=== PATIENT | female | born 1985 | race American Indian/Alaskan Native ===

== ENCOUNTER 2016-12-05 11:52 | Emergency (ER) | payer MEDICAID ==
[2016-12-05] MEDS: Albuterol-Ipratrop 3 mg / 0.5 (3 ml) UD IH SCH ×3 (12:15→12:40)
[2016-12-05 12:17] VITALS: BMI 36.6
[2016-12-05 12:22] VITALS: TEMP 97.9
[2016-12-05] MEDS ORDERED: Albuterol-Ipratrop 3 mg / 0.5 (3 ml) UD ONE (12:25)
--- NOTE | 2016-12-05 13:07 | RAD ---
HISTORY: cough, fever, asthma COMPARISON: Chest x-ray performed 10/11/15 TECHNIQUE: Chest PA and lateral FINDINGS: Examination limited by habitus. LUNGS: No focal consolidation. Please note that chest x-ray has limited sensitivity for the detection of pulmonary masses. PLEURA: No significant pleural effusion identified. No definite pneumothorax . CARDIOVASCULAR: Heart size appears within normal limits. OSSEOUS STRUCTURES: No acute osseous abnormality is detected. VISUALIZED UPPER ABDOMEN: Unremarkable. OTHER FINDINGS: None. IMPRESSION: No focal consolidation, significant pleural effusion, or definite pneumothorax identified.
--- NOTE | 2016-12-05 13:34 | C.PDOC ---
History Of Present Illness 30 yr old female with PMHx of asthma, presents to the ER with complaints of cough for the past 2-3 days, associated with chest congestion. Patient also states yesterday the symptoms became associated with SOB and wheezing. Patient states she has been using her inhaler but with minimal relief. Patient denies fever, chills, chest pain, nausea, vomiting, weakness or numbness. Time Seen by Provider: 12/05/16 12:10 Chief Complaint (Nursing): Shortness Of Breath History Per: Patient History/Exam Limitations: no limitations Onset/Duration Of Symptoms: Days (2-3) Current Symptoms Are (Timing): Still Present Exacerbating Factor(s): Coughing Associated Symptoms: denies: Fever, Sweating, Bloody Cough, Productive Cough, Leg/Calf Pain Past Medical History Reviewed: Historical Data, Nursing Documentation, Vital Signs Vital Signs: Last Vital Signs Temp 97.9 F 12/05/16 12:00 Pulse 93 H 12/05/16 13:47 Resp 20 12/05/16 13:47 BP 152/100 H 12/05/16 13:47 Pulse Ox 99 12/05/16 13:47 - Medical History PMH: Asthma Family History: States: No Known Family Hx - Social History Hx Alcohol Use: No Hx Substance Use: No - Immunization History Hx Tetanus Toxoid Vaccination: No Hx Influenza Vaccination: No Hx Pneumococcal Vaccination: No Review Of Systems Except As Marked, All Systems Reviewed And Found Negative. Constitutional: Negative for: Fever, Chills Cardiovascular: Positive for: Other ((+) Chest congestion). Negative for: Chest Pain Respiratory: Positive for: Cough, Shortness of Breath, Wheezing Gastrointestinal: Negative for: Nausea, Vomiting Neurological: Negative for: Weakness, Numbness Physical Exam - Physical Exam Appears: Non-toxic, No Acute Distress Skin: Warm, Dry, No Rash Head: Atraumatic, Normacephalic Eye(s): bilateral: Normal Inspection, PERRL, EOMI Oral Mucosa: Moist Neck: Normal ROM, Supple Chest: Symmetrical, No Tenderness Cardiovascular: Rhythm Regular, No Friction Rub, No Murmur Respiratory: No Rales, Wheezing (moderate wheeing bilateral) Gastrointestinal/Abdominal: Normal Exam, Soft, No Tenderness, No Guarding, No Rebound Extremity: Normal ROM, No Swelling Neurological/Psych: Oriented x3, Normal Speech, Normal Motor Gait: Steady ED Course And Treatment O2 Sat by Pulse Oximetry: 100 (RA) Pulse Ox Interpretation: Normal - Other Rad CXR X-Ray: Viewed By Me, Read By Radiologist Interpretation: HISTORY: cough, fever, asthma. COMPARISON: Chest x-ray performed 10/11/15. TECHNIQUE: Chest PA and lateral. FINDINGS: Examination limited by habitus. LUNGS: No focal consolidation. Please note that chest x- ray has limited sensitivity for the detection of pulmonary masses. PLEURA: No significant pleural effusion identified. No definite pneumothorax . CARDIOVASCULAR: Heart size appears within normal limits. OSSEOUS STRUCTURES: No acute osseous abnormality is detected. VISUALIZED UPPER ABDOMEN: Unremarkable. OTHER FINDINGS: None. IMPRESSION: No focal consolidation, significant pleural effusion, or definite pneumothorax identified. Medical Decision Making Medical Decision Making: PLAN: * CXR * Albuterol IH * Prednisone PO * Claritin PO On re-exam, the patient reports improvement of symptoms. Lungs are CTA, heart is RRR, abdomen is soft, non-tender and tolerating PO well. Ambulatory in the ED steady. Disposition - Disposition Referrals: Santi Mccormick MD [Medical Doctor] - Disposition: HOME/ ROUTINE Disposition Time: 13:32 Condition: GOOD Additional Instructions: Follow up with the medical doctor/clinic within 1-2 days. Return if worsened. 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 - Scribe Statement The provider has reviewed the documentation as recorded by the Scribe Rosa Cárdenas All medical record entries made by the Scribe were at my direction and personally dictated by me. I have reviewed the chart and agree that the record accurately reflects my personal performance of the history, physical exam, medical decision making, and the department course for this patient. I have also personally directed, reviewed, and agree with the discharge instructions and disposition.
--- NOTE | 2016-12-05 13:35 | C.PDOC ---
Time Seen by Provider: 12/05/16 12:10 Chief Complaint (Nursing): Shortness Of Breath Past Medical History Vital Signs: Last Vital Signs Temp 97.9 F 12/05/16 12:00 Pulse 89 12/05/16 12:00 Resp 18 12/05/16 12:20 BP 169/129 H 12/05/16 12:00 Pulse Ox 100 12/05/16 12:00 - Medical History PMH: Asthma Denies: Diabetes, Chronic Kidney Disease - Social History Hx Alcohol Use: No Hx Substance Use: No - Immunization History Hx Tetanus Toxoid Vaccination: No Hx Influenza Vaccination: No Hx Pneumococcal Vaccination: No ED Course And Treatment O2 Sat by Pulse Oximetry: 100 Disposition - Disposition Referrals: Santi Mccormick MD [Medical Doctor] - Disposition: HOME/ ROUTINE Disposition Time: 13:32 Condition: GOOD Additional Instructions: Follow up with the medical doctor/clinic within 1-2 days. Return if worsened. Prescriptions: Albuterol 0.5% [Albuterol 0.5% Inhal Lena (2.5 mg/0.5 ml) UD] 0.5 ml IH Q6 PRN # 1 kit PRN Reason: Wheezing Loratadine [Claritin] 10 mg PO DAILY #10 tab Nebulizer Accessories [Reusable Nebulizer Kit] 1 each MC Q4 #1 kit predniSONE [Prednisone] 20 mg PO BID #10 tab Promethazine/Codeine [Phenergan/Codeine Oral Syrup] 5 ml PO Q8 PRN #50 ml PRN Reason: Cough Instructions: Asthma (ED) Forms: [facility] (Armenian), Work Excuse - Clinical Impression Clinical Impression: Bronchitis, Asthma
[2016-12-05 13:48] VITALS: BP 152/100; PULSE 93; RESP 20
[2016-12-08 07:31] VITALS: O2SAT 100
== END 2016-12-05 13:48 | disposition home or self-care (01) ==
LOC: C.ER 11:52
DX: J45.909 Unspecified asthma, uncomplicated (principal)

== ENCOUNTER 2017-01-09 10:39 | Emergency (ER) | payer MEDICAID ==
[2017-01-09 10:40] VITALS: BMI 36.6
[2017-01-09 10:50] VITALS: PULSE 96; RESP 18; TEMP 98; O2SAT 98
--- NOTE | 2017-01-09 11:13 | C.PDOC ---
History Of Present Illness 31 y/o female c/o pain to left toes 3-5 after droppig heavy box on it last week , painful rom of toes, painful when walking., no numbness or tingling Time Seen by Provider: 01/09/17 11:05 Chief Complaint (Nursing): Lower Extremity Problem/Injury History Per: Patient History/Exam Limitations: no limitations Onset/Duration Of Symptoms: Days (7) Current Symptoms Are (Timing): Still Present Severity: Moderate - Ankle/Foot Description Of Injury: Struck With Object Alleviating Factor(s): OTC Pain Medication Past Medical History Reviewed: Historical Data, Nursing Documentation, Vital Signs Vital Signs: Last Vital Signs Temp 98.0 F 01/09/17 10:47 Pulse 96 H 01/09/17 10:47 Resp 18 01/09/17 10:47 BP 177/92 H 01/09/17 10:47 Pulse Ox 98 01/09/17 11:16 - Medical History PMH: Asthma, HTN Denies: Diabetes, Chronic Kidney Disease Family History: States: Unknown Family Hx - Social History Hx Alcohol Use: No Hx Substance Use: No - Immunization History Hx Tetanus Toxoid Vaccination: Yes Hx Influenza Vaccination: No Hx Pneumococcal Vaccination: No Review Of Systems Musculoskeletal: Positive for: Foot Pain (left) Skin: Negative for: Bruising Neurological: Negative for: Weakness, Numbness Physical Exam - Physical Exam Appears: Non-toxic, No Acute Distress Skin: Warm, Dry, No Ecchymosis Extremity: Left: Bony Point Tenderness (toes 3-5), Normal Color And Temperature , Painful To Bear Weight (foot) Pulses: Left Dorsalis Pedis: Normal Neurological/Psych: Oriented x3, Normal Speech, Normal Cognition ED Course And Treatment O2 Sat by Pulse Oximetry: 98 Medical Decision Making Medical Decision Making: lft toe pain s/p box dropped on foot: plan- upreg, xrays, nsaid, post op shoe. kadi tape if fx found. podiatry f/u 1150 am questionable fx seen on little toe; ortho shoe applied. pt reports hx htn, not on medication, denies any cp, sob, dizziness, lightheadedness, headache, blurry vision. pt strongly advised to f/u pmd curtis for further evaluation of bp, risk of stroke wiht elevated bp. pt expresses understanding. Disposition Counseled Patient/Family Regarding: Studies Performed, Diagnosis, Need For Followup - Disposition Referrals: Santi Mccormick MD [Medical Doctor] - Podiatry Clinic [Outside] Disposition: HOME/ ROUTINE Disposition Time: 11:58 Condition: STABLE Additional Instructions: Please wear orthopedic shoe for comfort. Take Tylenol or Motrin for pain, apply cold compresses to toes for 10 minutes several times a day. Follow up with podiatry. Follow up with Dr Mccormick as soon as possible for blood pressure check/ Return to ED for any worsening symptoms. Instructions: Toe Fracture (ED), Hypertension (ED) Forms: [facility] (Hebrew), General Discharge Instructions, Work Excuse - Clinical Impression Clinical Impression: Toe fracture, left, Elevated blood pressure reading
[2017-01-09 11:50] VITALS: BP 180/99
--- NOTE | 2017-01-09 15:25 | RAD ---
PROCEDURE: Left Foot Radiographs. HISTORY: pain to toes 3,4 5 COMPARISON: None. FINDINGS: BONES: Inferior calcaneal spur. No fracture. JOINTS: Normal. SOFT TISSUES: Normal. OTHER FINDINGS: None. IMPRESSION: No fractures noted. Small inferior calcaneal spur
== END 2017-01-09 12:26 | disposition home or self-care (01) ==
LOC: C.ER 10:39
DX: S92.912A Unspecified fracture of left toe(s), initial encounter for closed fracture (principal); W20.8XXA Other cause of strike by thrown, projected or falling object, initial encounter; I10 Essential (primary) hypertension

== ENCOUNTER 2017-02-18 12:53 | Emergency (ER) | payer MEDICAID ==
[2017-02-18 12:54] VITALS: BMI 36.6
[2017-02-18 13:12] VITALS: RESP 18
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
[2017-02-18 13:51] VITALS: BP 175/129; PULSE 96; TEMP 98
[2017-02-18 14:43] VITALS: O2SAT 98
== END 2017-02-18 13:57 | disposition home or self-care (01) ==
LOC: C.ER 12:53
DX: S90.821A Blister (nonthermal), right foot, initial encounter (principal); L03.115 Cellulitis of right lower limb; S90.31XA Contusion of right foot, initial encounter; W22.8XXA Striking against or struck by other objects, initial encounter